=== PATIENT | male | born 2000 | race Caucasian/White ===

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

== ENCOUNTER 2020-03-14 15:11 | Outpatient (CLI) | payer BC ==
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
== END 2020-03-14 15:12 | disposition home or self-care (01) ==
LOC: BICRAD 15:11
PROVIDERS: ATTEND Nurse Practitioner Family
DX: R61 Generalized hyperhidrosis (principal)
CPT/HCPCS: 71046

== ENCOUNTER 2022-03-23 11:32 | Emergency (ER) | payer BC ==
[2022-03-23] MEDS ORDERED: Ketorolac Tromethamine 30 MG/ML VIAL ONE (11:46)
[2022-03-23] MEDS ORDERED: Fentanyl 100 MCG/2 ML VIAL ONE ×3 (11:46→13:03)
[2022-03-23 11:56] LABS: #Basophils 0.1 thou/uL (0.0-0.2); #Eosinphils 0.1 thou/uL (0.0-0.7); #Lymphocytes 3.4 thou/uL (1.20-3.40); #Monocytes 0.7 thou/uL (0.11-0.59); #Neutrophils 3.7 thou/uL (1.40-6.50); %Basophils 0.8 % (0.0-1.0); %Eosinophils 1.5 % (0.0-10.0); %Lymphocytes 42.6 % (21.0-51.0); %Monocytes 8.4 % (0.0-10.0); %Neutrophils 46.8 % (42.0-75.0); Hemoglobin 15.8 g/dL (14.0-18.0); Mean Corpuscular HGB CONC 33.4 g/dL (32.0-36.0); Mean Corpuscular Hemoglobin 32.6 pg (27.0-31.0); Mean Corpuscular Volume 97.6 fL (78.0-98.0); Mean Platelet Volume 7.6 fL (7.4-10.4); Platelet Count 335 thou/uL (130-400); RBC Distribution Width 11.5 % (11.5-14.5); Red Blood Cell (RBC) Count 4.85 mill/uL (4.70-6.10)
[2022-03-23 12:16] LABS: ALT (SGPT) 19 U/L (8-55); AST (SGOT) 18 U/L (5-34); Albumin 4.4 g/dL (3.5-5.0); Alkaline Phosphatase 109 U/L (40-110); Anion Gap 18 mmol/L (10-20); BUN (Urea Nitrogen) 24 mg/dL (8.9-20.6); Bilirubin, Total 1.2 mg/dL (0.2-1.2); Calc. Creatinine Clearance 0 mL/min (70-130); Calcium 9.5 mg/dL (7.8-10.44); Carbon Dioxide 21 mmol/L (22-29); Chloride 105 mmol/L (98-107); Estimated GFR 74; Globulin 2.9 g/dL (2.4-3.5); Glucose 208 mg/dL (70-105); Potassium 4.7 mmol/L (3.5-5.1); Protein, Total 7.3 g/dL (6.0-8.3); Sodium 139 mmol/L (136-145)
[2022-03-23] MEDS ORDERED: Cefepime 1 GM VIAL ONE (13:28)
[2022-03-23] MEDS ORDERED: Bacitracin 1 PK ONE (13:29)
[2022-03-23] MEDS ORDERED: Cefepime 2 GM VIAL ONE (13:29)
[2022-03-23] MEDS ORDERED: Bupivacaine 0.5% 10 ML VIAL FS SCH (13:30)
[2022-03-23] MEDS ORDERED: Bupivacaine PF 0.5% 30 ML VIAL FS SCH (13:45)
[2022-03-23] MEDS ORDERED: Lidocaine 1% w/Epinephrine 1:100K 20 ML VIAL ONE (13:45)
[2022-03-23] MEDS ORDERED: HYDROcodone/Acetaminophen 5/325 mg Tablet ONE (14:54)
== END 2022-03-23 19:07 | disposition home or self-care (01) ==
LOC: ERS 11:32
DX: S82.832A Other fracture of upper and lower end of left fibula, initial encounter for closed fracture (principal); S50.812A Abrasion of left forearm, initial encounter; V28.0XXA Motorcycle driver injured in noncollision transport accident in nontraffic accident, initial encounter; Y92.410 Unspecified street and highway as the place of occurrence of the external cause
CPT/HCPCS: 12004; 36415; 80053; 85025; 86850; 86900; 86901; 96374; 96375; 96376; J0692; J1885; J3010; J3490